=== PATIENT | female | born 1980 | race Caucasian/White ===

== ENCOUNTER 2018-05-20 02:23 | Inpatient (IN) | payer OTHER, MEDICAID ==
[2018-05-20] MEDS ORDERED: OXYTOCIN 30 UNITS/LR 500 ML IV ×2 (03:30→15:00)
[2018-05-20] MEDS ORDERED: CARBOPROST 250 MCG INJ IM ×2 (03:30→15:00)
[2018-05-20] MEDS ORDERED: LIDOCAINE 1% (MPF) 30 ML INJ INJ (03:30)
[2018-05-20] MEDS ORDERED: BUTORPHANOL 1 MG INJ IV (03:30)
[2018-05-20] MEDS ORDERED: DEXTROSE 5%-LR 1,000 ML IV (03:30)
[2018-05-20] MEDS ORDERED: MISOPROSTOL 200 MCG TAB PR ×2 (03:30→15:00)
[2018-05-20] MEDS ORDERED: BUTORPHANOL 2 MG INJ IV (03:30)
[2018-05-20] MEDS ORDERED: METHYLERGONOVINE 0.2 MG INJ IM ×2 (03:30→15:00)
[2018-05-20] MEDS: BETAMET NA PHOS/AC(6 MG/ML) 2 ML INJ SYG IM ×2 (04:31→16:00)
[2018-05-20] MEDS: LACTATED RINGER'S 1,000 ML IV ×3 (04:49→10:56)
[2018-05-20] MEDS: AMPICILLIN 2 GM/NS (PMX) 100 ML IV (04:50)
[2018-05-20 04:52] LABS: ADD MAN DIFF? NO
[2018-05-20 04:56] LABS: BASOPHIL # 0.1 10^3/ul (0.0-0.1); BASOPHILS % 0.5 % (0.0-2.0); EOSINOPHILS # 0.1 10^3/ul (0.0-0.5); EOSINOPHILS % 1.1 % (0.0-7.0); HEMATOCRIT 34.3 % (37.0-47.0); HEMOGLOBIN 11.8 g/dl (12.0-16.0); LYMPHOCYTES # 2.1 10^3/ul (0.8-2.9); LYMPHOCYTES % 17.4 % (15.0-51.0); MEAN CORPUSCULAR HEMOGLOBIN 30.3 pg (29.0-33.0); MEAN CORPUSCULAR HGB CONC 34.4 g/dl (32.0-37.0); MEAN CORPUSCULAR VOLUME 87.9 fl (82.0-101.0); MEAN PLATELET VOLUME 8.7 fl (7.4-10.4); MONOCYTE # 0.8 10^3/ul (0.3-0.9); MONOCYTES % 6.4 % (0.0-11.0); NEUTROPHIL # 8.7 10^3/ul (1.6-7.5); NEUTROPHILS % 72.7 % (39.0-77.0); PLATELET COUNT 241 10^3/UL (140-415)
[2018-05-20 04:56] LABS: WHITE BLOOD COUNT 11.9 10^3/ul (4.8-10.8)
[2018-05-20 05:00] LABS: ADD UMIC YES; UR ASCORBIC ACID NEGATIVE (NEGATIVE); UR BACTERIA FEW /HPF (NONE SEEN); UR BILIRUBIN (Dip) NEGATIVE (NEGATIVE); UR BLOOD (Dip) 3+ mg/dL (NEGATIVE); UR CLARITY CLEAR (CLEAR); UR COLOR STRAW (YELLOW); UR GLUCOSE (Dip) 1+ mg/dL (NEGATIVE); UR KETONES (Dip) TRACE mg/dL (NEGATIVE); UR LEUKOCYTE ESTERASE (Dip) NEGATIVE Leu/ul (NEGATIVE); UR NITRITE (Dip) NEGATIVE (NEGATIVE); UR RBC 3 /HPF (0-5); UR SPECIFIC GRAVITY (Dip) 1.004 (1.003-1.030); UR TOTAL PROTEIN (Dip) NEGATIVE (NEGATIVE); UR UROBILINOGEN (Dip) NEGATIVE (NEGATIVE); UR WBC 1 /HPF (0-5)
[2018-05-20 05:13] LABS: GLUCOSE 102 mg/dl (70-220)
[2018-05-20 05:13] LABS: INR 0.88; PT RATIO 0.9
[2018-05-20 05:52] LABS: HEPATITIS B SURFACE ANTIGEN NEGATIVE (NEGATIVE)
[2018-05-20] MEDS: AMPICILLIN 1 GM/NS (PMX) 50 ML IV ×3 (08:41→20:53)
[2018-05-20] MEDS: OXYTOCIN 30 UNITS/LR 500 ML IV ×4 (10:14→20:54)
[2018-05-20] MEDS ORDERED: FENTAnyl 2MCG/ML-ROPIV 0.2% 100 ML (10:43)
[2018-05-20] MEDS ORDERED: NALOXONE (0.4 MG/ML) INJ IV (11:00)
[2018-05-20 14:39] LABS: RAPID PLASMA REAGIN NONREACTIVE (NR)
[2018-05-20] MEDS ORDERED: ONDANSETRON 4 MG INJ IV (15:00)
[2018-05-20] MEDS ORDERED: METHYLERGONOVINE 0.2 MG TAB PO (15:00)
[2018-05-20] MEDS ORDERED: HYDROCODONE/APAP (5/325) TAB PO ×2 (15:00)
[2018-05-20] MEDS ORDERED: ZOLPIDEM 5 MG TAB PO (15:00)
[2018-05-20] MEDS ORDERED: LANOLIN HPA 1 PKT TOP (15:00)
[2018-05-20] MEDS ORDERED: NA PHOSPHATE/BIPHOS 133 ML ENEMA PR (15:00)
[2018-05-20] MEDS ORDERED: MAGNESIUM HYDROXIDE 30ML CUP PO (15:00)
[2018-05-20] MEDS ORDERED: DIPHENHYDRAMINE 25 MG CAP PO (15:00)
[2018-05-20] MEDS: IBUPROFEN 600 MG TAB PO ×2 (16:40→21:51)
[2018-05-20] MEDS: BENZOCAINE 20% 56 ML SPRAY TOP (19:02)
[2018-05-20] MEDS: WITCH HAZEL/GLYCERIN PAD PR (19:02)
[2018-05-20] MEDS: FENTAnyl 2MCG/ML-ROPIV 0.2% 100 ML BAG EPI (20:53)
[2018-05-20] MEDS: LACTATED RINGER'S 1,000 ML IV* (20:53)
[2018-05-20] MEDS: SENNA/DOCUSATE NA (8.6MG/50MG) TAB PO (21:51)
[2018-05-21] MEDS: LACTATED RINGER'S 1,000 ML IV* (00:27)
[2018-05-21 06:40] LABS: ADD MAN DIFF? NO
[2018-05-21 06:45] LABS: WHITE BLOOD COUNT 17.4 10^3/ul (4.8-10.8)
[2018-05-21 06:45] LABS: BASOPHILS % 0.2 % (0.0-2.0); EOSINOPHILS % 0.2 % (0.0-7.0); HEMATOCRIT 32.7 % (37.0-47.0); LYMPHOCYTES # 2.9 10^3/ul (0.8-2.9); LYMPHOCYTES % 16.8 % (15.0-51.0); MEAN CORPUSCULAR HEMOGLOBIN 29.6 pg (29.0-33.0); MEAN CORPUSCULAR HGB CONC 33.6 g/dl (32.0-37.0); MEAN CORPUSCULAR VOLUME 88.1 fl (82.0-101.0); MEAN PLATELET VOLUME 9.1 fl (7.4-10.4); MONOCYTE # 1.1 10^3/ul (0.3-0.9); MONOCYTES % 6.1 % (0.0-11.0); NEUTROPHIL # 12.9 10^3/ul (1.6-7.5); NEUTROPHILS % 74.1 % (39.0-77.0); PLATELET COUNT 252 10^3/UL (140-415); RED BLOOD COUNT 3.71 10^6/ul (4.20-5.40); RED CELL DISTRIBUTION WIDTH 13.2 % (11.5-14.5)
[2018-05-21] MEDS: SENNA/DOCUSATE NA (8.6MG/50MG) TAB PO ×2 (08:47→21:44)
[2018-05-21] MEDS: IBUPROFEN 600 MG TAB PO (08:48)
[2018-05-22] MEDS: IBUPROFEN 600 MG TAB PO (05:36)
[2018-05-22] MEDS: WITCH HAZEL/GLYCERIN PAD PR ×2 (05:36→08:22)
[2018-05-22] MEDS: DIPHTH/TET/ACEL PERTUSS (ADULT) 0.5 ML VIAL IM* (08:22)
[2018-05-22] MEDS: BENZOCAINE 20% 56 ML SPRAY TOP (08:22)
[2018-05-22] MEDS: SENNA/DOCUSATE NA (8.6MG/50MG) TAB PO (08:22)
[2018-05-22] MEDS: VARICELLA VACCINE LIVE/PF 1,350 UNIT/0.5 ML ML SC* (09:00)
[2018-05-22] MEDS: MEASLES,MUMPS,RUBELLA VACCINE INJ SC* (09:00)
[2018-05-22 12:09] LABS: ADD MAN DIFF? NO
[2018-05-22 12:11] LABS: BASOPHIL # 0.1 10^3/ul (0.0-0.1); BASOPHILS % 0.5 % (0.0-2.0); EOSINOPHILS # 0.1 10^3/ul (0.0-0.5); EOSINOPHILS % 1.2 % (0.0-7.0); HEMATOCRIT 30.6 % (37.0-47.0); HEMOGLOBIN 10.3 g/dl (12.0-16.0); LYMPHOCYTES # 2.8 10^3/ul (0.8-2.9); LYMPHOCYTES % 23.7 % (15.0-51.0); MEAN CORPUSCULAR HEMOGLOBIN 30.1 pg (29.0-33.0); MEAN CORPUSCULAR HGB CONC 33.7 g/dl (32.0-37.0); MEAN CORPUSCULAR VOLUME 89.5 fl (82.0-101.0); MEAN PLATELET VOLUME 8.9 fl (7.4-10.4); MONOCYTE # 0.7 10^3/ul (0.3-0.9); MONOCYTES % 6.2 % (0.0-11.0); NEUTROPHIL # 7.6 10^3/ul (1.6-7.5); NEUTROPHILS % 65.4 % (39.0-77.0); PLATELET COUNT 259 10^3/UL (140-415); RED BLOOD COUNT 3.42 10^6/ul (4.20-5.40); RED CELL DISTRIBUTION WIDTH 13.4 % (11.5-14.5)
[2018-05-22 12:11] LABS: WHITE BLOOD COUNT 11.6 10^3/ul (4.8-10.8)
== END 2018-05-22 16:21 | disposition home or self-care (01) | DRG 807 ==
LOC: OBT 02:23 → L-D 02:24 → OBT 03:20 → L-D 03:20 → PP1 17:56
PROVIDERS: Obstetrics & Gynecology
PROC: 10E0XZZ Delivery of Products of Conception, External Approach (ICD-10-PCS; principal; 2018-05-20)
PROC: 0W8NXZZ Division of Female Perineum, External Approach (ICD-10-PCS; 2018-05-20)
PROC: 4A1HXCZ Monitoring of Products of Conception, Cardiac Rate, External Approach (ICD-10-PCS; 2018-05-20)
DX: O60.14X0 Preterm labor third trimester with preterm delivery third trimester, not applicable or unspecified (principal); Z37.0 Single live birth; Z3A.35 35 weeks gestation of pregnancy
CPT/HCPCS: 62322; 76815; 76818; 81001; 82947; 82962; 85025; 85610; 85730; 86592; 86850; 86900; 86901; 87340; 90716; 99464